=== PATIENT | male | born 1950 | race Caucasian/White ===

== ENCOUNTER → 2019-04-17 | Outpatient (CLI) | payer SELFPAY ==
--- NOTE | 2019-04-17 07:01 | MR ---
EXAMINATION TYPE: MR brain wo con DATE OF EXAM: 04/17/2019 COMPARISON: NONE HISTORY: Visual distortions per order. Additional symptoms of bilateral hearing loss per patient. TECHNIQUE: Multiplanar, multisequence imaging of the brain and brainstem is performed without IV cont rast. FINDINGS: Diffusion weighted images demonstrate no evidence of a recent infarct or other diffusion abnormality. There is no worrisome extra-axial fluid collection. There is diffuse ventricular and sulcal prominenc e. There are some scattered small foci of T2 hyperintensity throughout the white matter bilaterally. Lesions are nonspecific in appearance and distribution. Approximately 20 scattered lesions are presen t. Findings presumed on the basis of proximal or proximal vessel ischemic change in patient of this a ge. Midline structures demonstrate normal morphology. The craniocervical junction appears within normal limits. Normal vascular flow voids are present. There is poorly visualized normal caliber left anteri or cerebral artery noted. Suspect hypoplastic left A1 segment with small caliber A2 segment filled by patent anterior communicating artery. Mild mucosal thickening involving the frontal sinuses bilaterally. There is moderate to severe mucosa l thickening involving the ethmoid sinuses bilaterally. There is mild mucosal thickening involving th e inferior maxillary sinuses bilaterally. The globes are intact bilaterally. IMPRESSION: Mild to borderline moderate diffuse cerebral atrophy and chronic small vessel ischemic ch anges. Chronic paranasal sinus disease also noted as detailed above.
== END | disposition home or self-care (01) ==
LOC: RADMRIMAIN 05:48
PROVIDERS: ATTEND Ophthalmology
DX: G31.89 Other specified degenerative diseases of nervous system (principal); I67.82 Cerebral ischemia
CPT/HCPCS: 70551